=== PATIENT | male | born 1970 | race Caucasian/White ===

== ENCOUNTER 2020-09-23 16:11 | Emergency (ER) | payer OTHER, SELFPAY ==
[2020-09-23 16:19] VITALS: BP 149/87; BP 197/108; PULSE 100; PULSE 75; RESP 16; TEMP 36.9; O2SAT 96; BMI 22.8
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
[2020-09-23 18:07] VITALS: BP 153/83; PULSE 88; RESP 17; TEMP 37; O2SAT 97
--- NOTE | 2020-09-23 18:08 | PC.NURSE ---
CRUTCHES AND JOSE M WRAP.
== END 2020-09-23 18:38 | disposition home or self-care (01) ==
PROVIDERS: Emergency Provider Emergency Medicine
DX: S90.01XA Contusion of right ankle, initial encounter (principal); V03.00XA Pedestrian on foot injured in collision with car, pick-up truck or van in nontraffic accident, initial encounter; F11.20 Opioid dependence, uncomplicated; Y93.89 Activity, other specified; Y92.481 Parking lot as the place of occurrence of the external cause; Y99.9 Unspecified external cause status
CPT/HCPCS: 73610; 99283

== ENCOUNTER 2020-11-06 10:01 | Emergency (ER) | payer MEDICAID, SELFPAY ==
[2020-11-06 10:36] VITALS: BP 105/66; PULSE 67; RESP 16; TEMP 36.9; O2SAT 97; BMI 22.8
--- NOTE | 2020-11-06 11:36 | ED.GENADULT ---
HPI - General Adult General Chief complaint: Extremity Problem Stated complaint: swollen foot/hands Time Seen by Provider: 11/06/20 11:20 Source: patient Mode of arrival: ambulatory Limitations: no limitations History of Present Illness HPI narrative: 50-year-old male who presents emergency department for evaluation of swelling of his foot and ankle. Patient states that he has noted swelling of his foot and ankle for approximately 2-3 days and the swelling has gotten progressively worse. He states that his foot and ankle are extremely painful. He states that he has psoriatic arthritis has had similar swelling in his joints in the past. He states that he often gets the step of swelling in his feet, ankles, fingers and wrists. He states that the pain in his swollen foot and ankle is a constant, dull ache which is 10/10, worse if he puts weight on his joints. He is able to walk but it is painful. He believes he may have had a history of gout in the past as well. He denies fever, chills, chest pain, shortness of breath, cough, fatigue, weakness. Related Data Previous Rx's Medication Instructions Recorded ibuprofen 600 mg PO Q8H PRN #20 tab 09/23/20 cephalexin 500 mg PO QID 7 Days #28 cap 11/06/20 colchicine [Colcrys] 0.6 mg PO ONCE #2 tab 11/06/20 prednisone 60 mg PO DAILY 7 Days #21 tab 11/06/20 Allergies Allergy/AdvReac Type Severity Reaction Status Date / Time Unable to Assess Allergy Unverified 09/23/20 17:12 Review of Systems Review of Systems: Yes all other systems are reviewed and are negative PMFSH Past Medical History [facility] Narrative: Patient has a history of psoriatic arthritis, gout, depression, anxiety. He does smoke cigarettes, 1 pack per day times many years, denies alcohol use, he denies drug use, states that he has a history of heroin and cocaine use disorder but is currently in a methadone program and has not used recently. Medical History Anxiety Arthritis Depression IVDU (intravenous drug user) Methadone use disorder, mild, on maintenance therapy Social History Social History Smoked in Last 30 Days: No Use of substances other than those prescribed or required for medical reasons: No Advance Directives: No Advance Directives Information Provided: No Physical Exam Vital Signs: Vital Signs: Last Vital Signs Temp 98.4 F 11/06/20 10:36 Pulse 67 11/06/20 10:36 Resp 16 11/06/20 10:36 BP 105/66 11/06/20 10:36 Pulse Ox 97 11/06/20 10:36 Body Mass Index 22.8 Const: General: cooperative and healthy appearing Orientation/consciousness: oriented to person and oriented to place Limitations: no limitations HENMT: Head: Yes normal to inspection, Yes normocephalic and Yes atraumatic Ears: external ears normal General nose exam: Normal external nose present Face and sinus: Yes normal facial exam Mouth: Normal oral and palatal mucosa present Throat: Yes posterior oropharynx normal Eyes: Periorbital: periorbital findings normal Eyelids: Yes eyelids normal Conjunctivae: conjunctivae normal Sclerae: sclerae normal Corneas: corneas normal Pupils: Equal, round and reactive pupils present Direct Ophthalmoscopy: normal light reflex Neck: Neck: Yes full ROM, Yes no lymphadenopathy, Yes no meningeal signs, Yes trachea midline and Yes supple Chest: Chest palpation & inspection: normal inspection of the chest and normal palpation of entire chest wall Resp: Effort & Inspection: normal respiratory effort and able to speak in complete sentences Auscultation: clear to auscultation bilaterally Cardio: Rate: regular rate Rhythm: regular rhythm Heart sounds: S1 normal heart sound present, S2 normal heart sound present and no murmurs GI: Inspection: Yes normal to inspection Palpation (GI): Soft to palpation, nontender, no guarding, not rigid and No hepatosplenomegaly present : General: Yes no CVA tenderness Back/Spine/Pelvis: Back: no CVA tenderness Cervical Spine: normal cervical lordosis Thoracic/Lumbar Spine: thoracic and lumbar spine normal to inspection Skin: Lesions: no lesions Wounds: no wounds Neuro: General: oriented to person, oriented to place and no meningeal signs Cranial nerves: Yes Equal, round and reactive pupils present Cognition (Neuro): normal cognition Motor exam (neuro): 5/5 motor strength present throughout Extrem: Other: The patient has swelling of his foot and ankle, the patient does have ankle joint effusion, the patient has significant tenderness with palpation over the MTP joints of his foot and over his ankle. There is some slight erythema with increased warmth of the foot and ankle, the patient has no tenderness or joint swelling of his knee, his joints of his hand are consistent with arthritis of the PIP joints with no increased swelling or erythema. Psych: Appearance: well kempt Mental Status: mental status grossly normal Speech and movement: Normal speech and movement present Affect: normal affect Attitude: cooperative Thought process: Normal thought process present Thought content: Normal thought content present Course Course Course Narrative: 50-year-old male with a history of psoriatic arthritis and gout who presents emergency department for evaluation of swelling and pain of his left foot and left ankle. The patient does have significant swelling of his foot and ankle with increased warmth and erythema, there is no obvious skin breakdown. My impression is patient has gout verses flare-up of his psoriatic arthritis. Cellulitis also needs to be considered in the differential. The patient will be treated for inflammatory arthritis with colchicine and prednisone. I will also start him on Keflex 500 mg 4 times a day for possible cellulitis. The patient was given printed and verbal instructions and discharged home. The patient is having trouble bearing weight therefore he was given crutches to help relieve the pain a weight-bearing to his left lower extremity. Discharge Plan Discharge Clinical Impression: Gout, Cellulitis Patient Disposition: Home, Self-Care Instructions: Cellulitis (ED), Gout (ED) Additional Instructions: At this time, I believe that you swelling is most consistent with either gout or flare-up of your psoriatic arthritis. A skin infection (cellulitis) is also possible. I am going to treat you for both inflammatory arthritis and for cellulitis. Take colchicine 0.6 mg pills, take 2 pills and then 1 hour later take 1 pill. This medication will last for 3 days and will help reduce the inflammation in your joints. Take prednisone 20 mg pills, 3 pills once a day for 7 days. Prednisone is a steroid that reduces inflammation in your joints. Do not take any nonsteroidal anti-inflammatory medications such as Advil, Motrin, ibuprofen, Aleve or naproxen while you are taking prednisone. Take Keflex 500 mg pills, 1 pill 4 times a day for 7 days, this is an antibiotic and will treat cellulitis (skin infections). Take Tylenol (acetaminophen) 500 mg pills, 2 pills every 4 to 6 hours as needed for pain. Use the crutches for 1 week. Follow-up with your doctor in 2 days. Please return to the emergency department if your symptoms get worse or if you develop any symptoms that are concerning to you. Prescriptions: New prednisone 20 mg tablet 60 mg PO DAILY 7 Days Qty: 21 RF: 0 cephalexin 500 mg capsule 500 mg PO QID 7 Days Qty: 28 RF: 0 colchicine [Colcrys] 0.6 mg tablet 0.6 mg PO ONCE Qty: 2 RF: 0 No Action ibuprofen 600 mg tablet 600 mg PO Q8H PRN (Reason: pain) Qty: 20 RF: 0
== END 2020-11-06 11:58 | disposition home or self-care (01) ==
PROVIDERS: Emergency Provider Emergency Medicine Emergency Medical Services
DX: M10.9 Gout, unspecified (principal); L03.116 Cellulitis of left lower limb; L03.115 Cellulitis of right lower limb; F11.90 Opioid use, unspecified, uncomplicated; Z79.899 Other long term (current) drug therapy
CPT/HCPCS: 99283